=== PATIENT | female | born 1965 | race Caucasian/White ===

== ENCOUNTER 2022-07-06 00:08 | Emergency (ER) | payer OTHER, MEDICAID ==
[2022-07-06] MEDS ORDERED: Diphtheria,Pertussis(Acell),Tetanus Vaccine 0.5 ML Syringe IM ONE (03:13)
== END 2022-07-06 04:40 | disposition home or self-care (01) ==
LOC: MERGE 00:08 → JD.ED 00:08
DX: M25.512 Pain in left shoulder (principal); V49.40XA Driver injured in collision with unspecified motor vehicles in traffic accident, initial encounter; Y92.410 Unspecified street and highway as the place of occurrence of the external cause
CPT/HCPCS: 73030-26-LT; 73030-LT; 99283